=== PATIENT | male | born 1945 | race Caucasian/White ===

== ENCOUNTER → 2019-09-01 15:34 | Outpatient (REF) | payer MEDICARE, SELFPAY | LOC: ANHLAB 15:34 | PROVIDERS: Visit Provider Nurse Practitioner | DX: C44.229 Squamous cell carcinoma of skin of left ear and external auricular canal (principal) | CPT/HCPCS: 88305 ==

== ENCOUNTER → 2019-10-06 10:14 | Outpatient (REF) | payer MEDICARE, SELFPAY | LOC: ANHLAB 10:14 | PROVIDERS: Visit Provider Nurse Practitioner | DX: C44.229 Squamous cell carcinoma of skin of left ear and external auricular canal (principal) | CPT/HCPCS: 88305; 88331 ==